=== PATIENT | female | born 1960 ===

== ENCOUNTER → 2023-07-22 09:26 | Outpatient (CLI) | payer BC, SELFPAY ==
--- NOTE | ~2023-07-22 | MR_ITS ---
MRI of the right knee Clinical history: Pain Technique: Coronal proton density and proton density-weighted images, sagittal proton-density and T2 fat-sat images, and axial proton-density fat-saturated images were acquired. Findings: Anterior and posterior cruciate ligaments are intact. Medial collateral ligament and the la teral collateral ligament complex are intact. Popliteus tendon is intact. Medial and lateral menisci are intact, without evidence of tear. There is extensive marrow edema throughout the lateral femoral condyle, extending to the region of th e roof of the intercondylar notch. Questionable very subtle subchondral insufficiency fracture at the lateral femoral condyle. There is mild chondromalacia of the lateral tibial plateau. Medial compartm ent articular cartilage is well preserved. There is extensive high-grade chondral malacia patella. Fe moral trochlear cartilage is relatively well preserved. Extensor mechanism is intact. There is minimal joint effusion. No Sorenson's cyst. There is soft tissue edema deep to the iliotibial band. Impression: Extensive marrow edema throughout the lateral femoral condyle region. Possible very subtle subchondra l insufficiency fracture the lateral femoral condyle. Correlate for bone contusion due to direct impa ction injury. High-grade chondromalacia patella. Mild chondromalacia of the lateral tibial plateau. Soft tissue edema deep to the tibial band. This could be reactive. Correlate for iliotibial band synd reinier. Reviewed, dictated and finalized at location . PILOT Impression: Extensive marrow edema throughout the lateral femoral condyle region. Possible very subtle subchondral insufficiency fracture the lateral femoral condyle. Cor relate for bone contusion due to direct impaction injury. High-grade chondromalacia patella. Mild chondromalacia of the lateral tibial pl ateau. Soft tissue edema deep to the tibial band. This could be reactive. Correlate fo r iliotibial band syndrome.
== END ==
PROVIDERS: PCP Family Medicine; Visit Provider Family Medicine
DX: M25.561 Pain in right knee (principal); R60.9 Edema, unspecified; M22.41 Chondromalacia patellae, right knee
CPT/HCPCS: 73721